=== PATIENT | male | born 1965 | race Caucasian/White ===

== ENCOUNTER 2016-10-19 21:02 | Emergency (ER) | payer MEDICAID ==
[2016-10-19 21:12] VITALS: BP 138/85; PULSE 93; RESP 16; TEMP 98.8; O2SAT 96
--- NOTE | 2016-10-19 21:40 | EDPHY ---
H & P Time Seen by Provider: 10/19/16 21:32 HPI/ROS: CHIEF COMPLAINT: Coughing up blood HISTORY OF PRESENT ILLNESS: This patient is a 51 year old male who presents to the Emergency Department following an episode of hemoptysis this morning. Moist cough for 2 days, productive of yellowish phlegm and steaks of blood this morning x 1. He also complains of sore throat with tongue and mouth ulcers and reports that "it feels like someone poured fire into my throat." He reports one episode of chills two days prior to arrival but no fever. Having trouble sleeping because of cough. No abdominal complaints. He denies any pertinent medical history. He quit smoking in 2012. REVIEW OF SYSTEMS: Constitutional: No fever; +chills, subsided Eyes: No visual changes ENT: +sore throat, +mouth ulcers Respiratory: +cough, no shortness of breath Cardiac: No chest pain Gastrointestinal: No nausea, no vomiting, no abdominal pain Genitourinary: No hematuria, no dysuria Musculoskeletal: No leg pain or swelling Skin: No rash Neurological: No headache, no numbness, no weakness Psychiatric: No depression Past Medical/Surgical History: Orthopedic surgeries, mastoidectomy. Social History: Former smoker. . Works as a construction project coordinator. Lives in [place]. Smoking Status: Former smoker Physical Exam: General Appearance: Alert, non-toxic Eyes: Pupils equal and round, no conjunctival injection ENT, Mouth: Mucous membranes moist, 2mm ulceration on left side of tongue, pharyngeal erythema Neck: Normal inspection, no adenopathy, no stridor Respiratory: Lungs are clear to auscultation, no wheezing Cardiovascular: Regular rate and rhythm, no murmur Gastrointestinal: Abdomen is soft and non-tender Neurological: A&O, nonfocal, normal gait Skin: Warm and dry, no rash Extremities: Nontender, no pedal edema Psychiatric: Mood and affect normal Constitutional: Initial Vital Signs Temperature (C) 37.1 C 10/19/16 21:06 Heart Rate 93 10/19/16 21:06 Respiratory Rate 16 10/19/16 21:06 Blood Pressure 138/85 H 10/19/16 21:06 O2 Sat (%) 96 10/19/16 21:06 Allergies/Adverse Reactions: alprazolam [From Xanax] Allergy (Verified 07/29/16 20:59) morphine Allergy (Verified 07/29/16 20:59) promethazine HCl [From Phenergan] Allergy (Verified 07/16/16 13:33) tramadol HCl [From Ultram] Allergy (Verified 07/16/16 13:33) tuberculin,PPD,multi-puncture Allergy (Verified 07/16/16 13:33) Home Medications: Medication Instructions Recorded Azithromycin [Zithromax] 250 mg PO DAILY #6 tab 10/19/16 Medical Decision Making - Diagnostics Imaging: Chest x-ray reviewed by me reveals no acute disease. ED Course/Re-evaluation: This pt presents with URI sx and one episodes of minor hemoptysis, most likely secondary to acute bronchitis. CXR reveals no focal infiltrate. I discussed symptomatic treatment with the patient. He will be provided with a hydrocodone take-home pack to use for sleep at night and course of antibiotics. Differential Diagnosis: includes though not limited to pneumonia, PE, lung tumor - Data Points Medications Given: Discontinued Medications Hydrocodone Bitart/Acetaminophen ([place] 5/325mg Prepack#6) 1 btl TAKEHOME EDNOW ONE Stop: 10/19/16 21:50 Last Admin: 10/19/16 22:00 Dose: 1 btl Departure - Departure Disposition: Home, Routine, Self-Care Clinical Impression: Hemoptysis Acute bronchitis Qualifiers: Bronchitis organism: unspecified organism Qualified Code(s): J20.9 - Acute bronchitis, unspecified Condition: Good Instructions: Hydrocodone/Acetaminophen (By mouth), Acute Bronchitis (ED), Hemoptysis (ED) Additional Instructions: 1. Drink plenty of fluids. Take Aleve every 12 hours as needed for pain. 2. Take the full course of azithromycin as prescribed. 3. Take one tablet of hydrocodone at bedtime as needed to help you sleep. 4. Return to the Emergency Department if you continue to cough up blood, experience a high fever, or for other serious concerns. 5. Follow-up with a primary care provider if you do not feel better in 3-5 days. We have referred you to our on-call provider, Dr. Garcia. Referrals: Abdiel Garcia MD [Medical Doctor] - As per Instructions Prescriptions: Azithromycin [Zithromax] 250 mg PO DAILY #6 tab Report Scribed for: Leola Dubon Report Scribed by: Radha Ren Date of Report: 10/19/16 Time of Report: 21:39 Physician Review and Approval Statement: 10/19/16 21:39 Portions of this note were transcribed by a medical care evaluation specialist. I personally performed a history, physical exam, medical decision making, and confirmed accuracy of information the transcribed note.
[2016-10-19] MEDS ORDERED: HYDROCOD/APAP 5/325 PREPACK#6 BTL TAKEHOME ONE (21:49)
== END 2016-10-19 22:05 | disposition home or self-care (01) ==
DX: R04.2 Hemoptysis (principal); J20.9 Acute bronchitis, unspecified; Z87.891 Personal history of nicotine dependence